=== PATIENT | female | born 1985 | race Caucasian/White ===

== ENCOUNTER 2019-03-01 08:04 | Inpatient (IN) | payer OTHER ==
[2019-03-01] MEDS ORDERED: ceFAZolin 2 GM in NS 100 ml - ONCE (Pharmacy Admix) IVPB ONE (08:30)
[2019-03-01] MEDS ORDERED: NS 0.9% 100 ML* 100 ML ONE (09:03)
[2019-03-01] MEDS ORDERED: Morphine PF AMP (0.5MG/ML)* 5 MG/10 ML AMP ONE (09:42)
[2019-03-01] MEDS ORDERED: Midazolam* 1 MG/ML 5 ML VIAL (5 MG) ONE (09:42)
[2019-03-01] MEDS ORDERED: fentaNYL* 50 MCG/ML 2 ML VIAL (100 MCG VIAL) ONE (09:42)
[2019-03-01] MEDS ORDERED: KETAMINE HCL* 50 MG/ML 10 ML VIAL ONE (09:42)
[2019-03-01] MEDS ORDERED: Famotidine IV* 10 MG/ML 2 ML (20 mg) ONE (09:47)
[2019-03-01] MEDS ORDERED: Famotidine IV* 10 MG/ML 2 ML (20 mg) IV ONE (09:50)
[2019-03-01] MEDS ORDERED: DiMENhydriNATE IV* 50 MG/ML VIAL IV PUSH PRN (10:22)
[2019-03-01] MEDS ORDERED: PROCHLORPERAZINE INJ 5 MG/ML 2 ML VIAL IV PRN (10:22)
[2019-03-01] MEDS ORDERED: oxyCODONE/Acetamin 5/325 MG* TAB PO PRN (10:22)
[2019-03-01] MEDS ORDERED: Ondansetron INJ* 2 MG/ML VIAL IV PRN (10:22)
[2019-03-01] MEDS ORDERED: Naloxone* 0.4 MG/ML 1 ML VIAL IV PRN ×2 (10:22→10:23)
[2019-03-01] MEDS ORDERED: Scopolamine 1.5 mg* PATCH TRANSDERM PRN (10:22)
[2019-03-01] MEDS ORDERED: fentaNYL* 50 MCG/ML 2 ML VIAL (100 MCG VIAL) IV PRN (10:23)
[2019-03-01] MEDS ORDERED: OXYTOCIN* 10 UNITS/ML 1 ML VIAL ONE (10:42)
[2019-03-01] MEDS ORDERED: Ondansetron INJ* 2 MG/ML VIAL ONE (11:08)
[2019-03-01] MEDS ORDERED: Dexamethasone IV* 4 MG/ML 1 ML (4 MG) ONE (11:08)
[2019-03-01] MEDS ORDERED: EPHEDrine (Pressors)* 50 MG/ML VIAL ONE (11:08)
[2019-03-01] MEDS ORDERED: Ketorolac INJ* 30 MG/ML 1 ML VIAL ONE (11:08)
[2019-03-01] MEDS ORDERED: Phenylephrine 10 MG/ML VIAL* 1 ML VIAL ONE (11:09)
[2019-03-01] MEDS ORDERED: Scopolamine 1.5 mg* PATCH ONE (11:09)
[2019-03-01] MEDS ORDERED: Phenylephrine 40 MCG/ML SYRINGE ONE (11:09)
[2019-03-01] MEDS ORDERED: Glycerin ADULT SUPP PR PRN (11:59)
[2019-03-01] MEDS ORDERED: Witch Hazel PAD* JAR TOPICAL PRN (11:59)
[2019-03-01] MEDS ORDERED: Dibucaine 1% 28.35 GM TUBE PR PRN (11:59)
[2019-03-01] MEDS ORDERED: Lactated Ringers 1000 ML Bag* 1,000 ML IV SCH (12:00)
[2019-03-01] MEDS: Docusate CAP* 100 MG PO SCH ×2 (14:13→21:01)
[2019-03-01] MEDS: Simethicone TAB* 80 MG TAB.CHEW PO SCH ×3 (14:13→21:00)
[2019-03-01] MEDS: Ketorolac INJ* 30 MG/ML 1 ML VIAL IV PRN (17:24)
[2019-03-02] MEDS: Ketorolac INJ* 30 MG/ML 1 ML VIAL IV PRN (00:15)
[2019-03-02] MEDS ORDERED: oxyCODONE/Acetamin 5/325 MG* TAB PO PRN (02:00)
[2019-03-02] MEDS: Ibuprofen TAB* 600 MG PO PRN ×3 (06:28→18:35)
[2019-03-02] MEDS ORDERED: Ferrous Gluconate TAB* 324 MG TAB PO SCH (09:00)
[2019-03-02] MEDS: Simethicone TAB* 80 MG TAB.CHEW PO SCH ×4 (09:01→20:41)
[2019-03-02] MEDS: Docusate CAP* 100 MG PO SCH ×3 (09:01→20:40)
[2019-03-02 09:35] LABS: ABS Basophils 0.1 10^3/ul (0-0.2); ABS Eosinophils 0 10^3/ul (0-0.6); ABS Lymphocytes 1.8 10^3/ul (1.0-4.8); ABS Monocytes 0.9 10^3/ul (0-0.8); ABS Neutrophils 12.8 10^3/ul (1.5-7.7); ABS Nucleated RBC 0 10^3/ul; Eosinophil % 0.2 %; Hematocrit 33 % (33-41); Hemoglobin 10.9 g/dL (12.0-16.0); Lymphocyte % 11.5 %; Mean Corpuscular HGB Conc 33 g/dL (31-36); Mean Corpuscular Hemoglobin 30 pg (27-31); Mean Corpuscular Volume 91 fL (80-97); Mean Platelet Volume 8.1 fL (7.4-10.4); Nucleated Red Blood Cells % 0; Platelet Count 135 10^3/uL (150-450); Red Blood Count 3.58 10^6 /uL (3.70-4.87); Red Cell Distribution Width 15 % (10.5-15); White Blood Count 15.7 10^3/uL (3.5-10.8)
[2019-03-02] MEDS: Acetaminophen TAB* 325 MG PO PRN ×3 (09:45→18:34)
--- NOTE | 2019-03-02 19:50 | PTEDU ---
Patient Name: NAOMY ENGLISH NAOMY ENGLISH selected video: BBOB: Nurturing Your Gorgeous &Growing Baby by to view on 03/02/2019 at 7:49:33 [id number]
--- NOTE | 2019-03-02 20:01 | PTEDU ---
Patient Name: NAOMY ENGLISH NAOMY ENGLISH selected video: BBOB: Nurturing Your Gorgeous &Growing Baby by to view on 03/02/2019 at 8:00:25 PM from [id number]
[2019-03-03] MEDS: Ibuprofen TAB* 600 MG PO PRN ×4 (00:19→21:33)
[2019-03-03] MEDS: Simethicone TAB* 80 MG TAB.CHEW PO SCH ×4 (07:44→21:34)
[2019-03-03] MEDS: Docusate CAP* 100 MG PO SCH ×3 (07:44→21:34)
[2019-03-03] MEDS: oxyCODONE/Acetamin 5/325 MG* TAB PO PRN (07:45)
--- NOTE | 2019-03-03 13:11 | PTEDU ---
Patient Name: NAOMY ENGLISH NAOMY ENGLISH selected video: Never Ever Shake a Baby to view on 03/03/2019 at 1:09:57 PM from [id number]
--- NOTE | 2019-03-03 13:19 | PTEDU ---
Patient Name: NAOMY ENGLISH NAOMY ENGLISH selected video: Follow Me Mum: The [place] to Successful to view on 9 at 1:18:51 PM [id number]
--- NOTE | 2019-03-03 13:47 | PTEDU ---
Patient Name: NAOMY ENGLISH NAOMY ENGLISH selected video: BBOB: Bonding Through Massage to view on 03/03/2019 at 1:46:35 P [id number]
[2019-03-04] MEDS: oxyCODONE/Acetamin 5/325 MG* TAB PO PRN ×2 (02:49→10:09)
[2019-03-04] MEDS: Ibuprofen TAB* 600 MG PO PRN (08:08)
[2019-03-04] MEDS: Docusate CAP* 100 MG PO SCH (08:08)
[2019-03-04] MEDS: Simethicone TAB* 80 MG TAB.CHEW PO SCH (08:08)
[2019-03-04] MEDS ORDERED: Scopolamine PATCH Remove* 1 NOTE MISC PATCH OFF PRN (10:22)
[2019-03-04 11:18] VITALS: BP 116/76
--- NOTE | 2019-03-06 01:59 | OP ---
DATE OF OPERATION: 03/01/19 - ROOM #116 DATE OF : 81 SURGEON: Magy Townsend MD ASSISTANTS: 1. Dr. Da Silva. 2. Alisha Tavares CNM ANESTHESIA: Spinal. PRE-OP DIAGNOSIS: Intrauterine gestation at 39 and 3 weeks gestational age, breech presentation, failed external cephalic version. POST-OP DIAGNOSIS: Intrauterine gestation at 39 and 3 weeks gestational age, breech presentation, failed external cephalic version. OPERATIVE PROCEDURE: Primary low transverse section. ESTIMATED BLOOD LOSS: 800 mL. FLUID: Crystalloid. DRAINS: Alejo catheter. FINDINGS: Female infant, Apgars of 8 and 9, weight 7 pounds 15 ounces. Normal - appearing uterus, ovaries, and tubes. Normal-appearing placenta. DESCRIPTION OF PROCEDURE: After informed consent was signed, the patient was taken to the operating room where she was given spinal anesthesia that was found to be adequate. A Alejo catheter was introduced into her bladder and SCDs were placed on her legs. She was then prepped and draped in the dorsal supine position with a leftward lift. A time-out was performed. A Pfannenstiel skin incision was then made with a scalpel and carried down to the underlying layer of fascia. The fascia was incised in either side of the midline and the fascial incision extended laterally with a combination of sharp and blunt dissection. The inferior edge of the fascial incision was grasped with Laverne clamps, tented up and dissected down with a combination of sharp and blunt dissection. Then, the superior edge of the fascial incision was grasped with Laverne clamps, tented up and dissected down with a combination of sharp and blunt dissection. The rectus muscles were in the midline and the peritoneum was entered bluntly. The peritoneal incision was extended laterally with blunt dissection. The bladder blade was inserted and a transverse incision was made in the lower uterine segment with a scalpel. The incision was extended superiorly and inferiorly with blunt pressure. The 's feet were grasped and delivered followed by the rest of the body. The arms are rotated inwardly to easily deliver and the head was delivered in a flexed position. The cord was milked towards the baby, then clamped x2 and cut. The baby was handed to the carpenter general. Cord blood was collected. The uterus was then exteriorized and cleared of clots and debris. The uterine incision was closed with 0 Vicryl in a running locked fashion with a second layer of suture imbricating the first. The uterus was then placed back into the abdominal cavity and the abdominal cavity was irrigated. The incision was inspected and good hemostasis was noted along the length of the incision. The peritoneum was then closed with 3-0 Vicryl in a running unlocked fashion. The fascia was closed with 0 Vicryl in a running unlocked fashion, and the skin was closed with 4-0 Monocryl in a running subcuticular fashion. This incision was clean. Mastisol and Steri-Strips were placed. A dressing was placed and the patient was then moved to the stretcher and taken to the recovery room in stable condition. [id number]/CPS #: [id number] [place]
== END 2019-03-04 11:30 | disposition home or self-care (01) | DRG 788 ==
LOC: MCHOB 08:04
PROVIDERS: ADMIT Obstetrics & Gynecology; ATTEND Obstetrics & Gynecology
PROC: 4A1HXCZ Monitoring of Products of Conception, Cardiac Rate, External Approach (ICD-10-PCS; 2019-03-01)
PROC: 10D00Z1 Extraction of Products of Conception, Low, Open Approach (ICD-10-PCS; principal; 2019-03-01 09:30)
DX: O32.1XX0 Maternal care for breech presentation, not applicable or unspecified (principal); Z3A.39 39 weeks gestation of pregnancy; Z37.0 Single live birth
CPT/HCPCS: 36415; 76815; 85025; A9270-GY; J0690; J1100; J1885; J2250; J2405; J2590; J3010